=== PATIENT | male | born 1945 | race Caucasian/White ===

== ENCOUNTER 2021-08-29 14:08 | Emergency (ER) | payer OTHER ==
[~2021-08-29] VITALS: Ht 177.8 cm; Wt 90.7 kg
[2021-08-29 14:08] VITALS: BP_SYST 150
[2021-08-29] MEDS ORDERED: PRED20TA PO (14:41)
[2021-08-29] MEDS ORDERED: DEXT30DR6 RIGHT EYE (14:41)
[2021-08-29] MEDS ORDERED: MINE3.5O26 OP (14:41)
== END 2021-08-29 15:44 | disposition home or self-care (01) ==
LOC: SED 14:08
DX: G51.0 Bell's palsy (principal); Z79.899 Other long term (current) drug therapy
CPT/HCPCS: 99283

== ENCOUNTER 2023-11-23 18:17 | Emergency (ER) | payer OTHER ==
[~2023-11-23] VITALS: Ht 180.3 cm; Wt 79.4 kg
[~2023-11-23 18:17] MED LIST: DEXT30DR6 RIGHT EYE; MINE3.5O26 OP; PRED20TA PO
[2023-11-23 18:30] VITALS: BP_SYST 146; PULSE 72; RESP 18; TEMP 97.5; O2SAT 96
[2023-11-23] MEDS: BACITRACIN 1 GM OINT TP ONE (20:14)
[2023-11-23] MEDS: DIPHTH,PERTUSS(ACELL),TET VAC 0.5 ML VIAL (Tdap) I.M. ONE (21:08)
[2023-11-23 21:10] VITALS: BP_SYST 150; PULSE 89; RESP 16; TEMP 97.5; O2SAT 100
== END 2023-11-23 21:00 | disposition home or self-care (01) ==
LOC: SED 18:17
DX: S00.01XA Abrasion of scalp, initial encounter (principal); I10 Essential (primary) hypertension; E11.9 Type 2 diabetes mellitus without complications; E78.5 Hyperlipidemia, unspecified; Z90.89 Acquired absence of other organs; Z79.899 Other long term (current) drug therapy; W18.39XA Other fall on same level, initial encounter; Y93.89 Activity, other specified; Y92.89 Other specified places as the place of occurrence of the external cause; Y99.8 Other external cause status
CPT/HCPCS: 70450-TC; 90715; 99285